=== PATIENT | female | born 1970 | race Caucasian/White ===

== ENCOUNTER 2016-09-23 08:46 | Emergency (ER) | payer MEDICAID ==
[~2016-09-23] VITALS: Ht 160 cm; Wt 83.0 kg
[2016-09-23 08:52] VITALS: BP 108/66
--- NOTE | 2016-09-23 08:59 | NUR ---
PT TAKEN TO BED 5.
--- NOTE | 2016-09-23 09:00 | NUR ---
Karen chan in [facility] - 09/23/16 at [address] Lorenzo at bedside
--- NOTE | 2016-09-23 09:00 | NUR ---
Dr. Lorenzo at bedside
--- NOTE | 2016-09-23 09:12 | NUR ---
Patient being evaluated by physician at bedside.
--- NOTE | 2016-09-23 09:13 | NUR ---
Karen chan in [facility] - 09/23/16 at 0913 by PARRISH Patient being evaluated by physician at bedside.
[2016-09-23] MEDS ORDERED: LIDOCAINE 1% 500 MG/50 ML VIAL INJ ONE (09:15)
[2016-09-23] MEDS ORDERED: IBUPROFEN 400 MG TAB PO ONE (09:15)
--- NOTE | 2016-09-23 09:16 | NUR ---
PATIENT PRESENTS TO ED WITH c/o headache . PT STATES SHE HAS CHEST PAIN IF SHE IS ANXIOUS . DENIES N/V/D; SKIN IS PINK/WARM/DRY; AAOX4 WITH EVEN AND STEADY GAIT; LUNGS CLEAR BL; HR EVEN AND REGULAR; PT DENIES ANY FEVER, CP, SOB, OR COUGH AT THIS TIME; PATIENT STATES PAIN OF 9/10 AT THIS TIME; VSS; PATIENT POSITIONED FOR COMFORT; HOB ELEVATED; BEDRAILS UP X2; BED DOWN. ER MD MADE AWARE OF PT STATUS.
--- NOTE | 2016-09-23 09:20 | NUR ---
45/F presents to ED for evaluation of headache x1 day. Patient denies syncope, denies dizzness. Denies N/V/D. Pt is AOX4, portuguese speaking with clear speaking. VSS.
[2016-09-23 10:17] VITALS: BP 101/62
--- NOTE | 2016-09-23 10:18 | NUR ---
Patient discharged with v/s stable. Written and verbal after care instructions given and explained. Patient alert, oriented and verbalized understanding of instructions. Ambulatory with steady gait. All questions addressed prior to discharge. ID band removed. Patient advised to follow up with PMD. Rx of NAPROXYN AND XANAX given. Patient educated on indication of medication including possible reaction and side effects. Opportunity to ask questions provided and answered.
--- NOTE | 2016-09-23 10:19 | NUR ---
Chart checked and completed. The patient's care was reviewed and supervised by Arvind Woodard RN.
== END 2016-09-23 10:18 | disposition home or self-care (01) ==
LOC: MED 08:46
DX: G44.209 Tension-type headache, unspecified, not intractable (principal); F41.9 Anxiety disorder, unspecified; Z90.49 Acquired absence of other specified parts of digestive tract
CPT/HCPCS: 20552; 93005; 99284; J2001

== ENCOUNTER 2016-10-10 22:01 | Emergency (ER) | payer MEDICAID ==
[~2016-10-10] VITALS: Ht 160 cm; Wt 81.6 kg
[2016-10-10 22:14] VITALS: BP 114/72
--- NOTE | 2016-10-11 00:29 | NUR ---
AMBULATED TO ER BED 3
--- NOTE | 2016-10-11 00:42 | NUR ---
PT IS A 45Y/F BIB FAMILY C/O BOTH EYE PAIN x 2 WEEKS.
--- NOTE | 2016-10-11 01:47 | NUR ---
Patient being evaluated by DR. IRVIN at bedside.
[2016-10-11] MEDS ORDERED: TETRACAINE 0.5% OPTH SOL 2 ML BTL OP ONE (01:55)
[2016-10-11] MEDS ORDERED: TETRACAINE 0.5% OPTH SOL 2 ML BTL ONE (01:59)
[2016-10-11 02:25] VITALS: BP 110/68
--- NOTE | 2016-10-11 02:25 | NUR ---
Patient discharged with v/s stable. Written and verbal after care instructions given and explained. Patient alert, oriented and verbalized understanding of instructions. Ambulatory with steady gait. All questions addressed prior to discharge. ID band removed. Patient advised to follow up with PMD. Rx of BENADRYL ALLERGY 25MG PO given. Patient educated on indication of medication including possible reaction and side effects. Opportunity to ask questions provided and answered.
== END 2016-10-11 02:25 | disposition home or self-care (01) ==
LOC: MED 22:05
DX: H10.13 Acute atopic conjunctivitis, bilateral (principal)

== ENCOUNTER 2018-01-27 20:14 | Emergency (ER) | payer MEDICAID ==
[~2018-01-27] VITALS: Ht 157.5 cm; Wt 88.5 kg
[2018-01-27 20:23] VITALS: BP 123/75
--- NOTE | 2018-01-27 20:34 | NUR ---
TO LOBBY A/W BED, EKG DONE, VSS, AMB , ERMD NOTED
--- NOTE | 2018-01-27 20:53 | NUR ---
PT TO BED 4
--- NOTE | 2018-01-27 21:05 | NUR ---
PT C/O CHESST PAIN AND SOB X3 DAYS C/P STARTED IN THE AM 3 DAYS AGO WHEN PT WAS MAKING BREAKFAST. SHE TOOK MOTRIN W/ MINIMAL RELIEF. RR EVEN AND UNALBORED, PT APPEARS TO BE IN NO ACUTE DISTRESS AT THIS TIME. PT HAS STERNAL CHEST PAIN THAT RADIATES TO LEFT SIDE OF CHEST. NO PMH, NKDA
--- NOTE | 2018-01-27 21:19 | NUR ---
Dr. Glynn evaluating patient at bedside.
[2018-01-27] MEDS ORDERED: KETOROLAC 60 MG/2 ML VIAL IM ONE (21:35)
--- NOTE | 2018-01-27 21:47 | NUR ---
X-Ray at bedside.
[2018-01-27 22:19] VITALS: BP 123/75
--- NOTE | 2018-01-27 22:19 | NUR ---
Patient discharged with v/s stable. Written and verbal after care instructions given and explained. Patient alert, oriented and verbalized understanding of instructions. Ambulatory with steady gait. All questions addressed prior to discharge. ID band removed. Patient advised to follow up with PMD. Rx of Xanax and motrin given. Patient educated on indication of medication including possible reaction and side effects. Opportunity to ask questions provided and answered.
== END 2018-01-27 22:19 | disposition home or self-care (01) ==
LOC: MED 20:14
DX: R07.89 Other chest pain (principal); F41.9 Anxiety disorder, unspecified; R03.0 Elevated blood-pressure reading, without diagnosis of hypertension
CPT/HCPCS: 71045; 93005; 96372; 99284; J1885

== ENCOUNTER 2018-04-24 11:28 | Emergency (ER) | payer MEDICAID ==
[~2018-04-24] VITALS: Ht 160 cm; Wt 85.7 kg
[2018-04-24 11:35] VITALS: BP 128/63
--- NOTE | 2018-04-24 11:35 | NUR ---
PT AMBULATED TO ER BED 06
--- NOTE | 2018-04-24 11:36 | NUR ---
47Y/F BIB FRIEND WITH C/O RT LEG PAIN FROM [place] TO RT HEEL X 2 MONTHS; HAS BEEN TAKING IBUPROFEN; DENIES INJURY; BED BOEWN ; BEDRAIL UP X 1; ER MD AWARE AND NOTIFIED OF PT STATUS; WILL CONT TO MONITOR PT. HX; DENIES RX; DENIES
--- NOTE | 2018-04-24 11:40 | NUR ---
Patient being evaluated by physician at bedside.
[2018-04-24 12:15] VITALS: BP 127/61
== END 2018-04-24 12:15 | disposition home or self-care (01) ==
LOC: MED 11:28
DX: M77.8 Other enthesopathies, not elsewhere classified (principal); M72.2 Plantar fascial fibromatosis
CPT/HCPCS: 73630; 81002; 99284

== ENCOUNTER 2018-08-15 19:10 | Emergency (ER) | payer SELFPAY ==
[~2018-08-15] VITALS: Ht 162.6 cm; Wt 84.1 kg
[2018-08-15 19:18] VITALS: BP 124/76
--- NOTE | 2018-08-15 19:23 | NUR ---
PT AMBULATED TO BED 3. URINE CUP GIVEN TO PT FOR URINE COLLECTION.
--- NOTE | 2018-08-15 21:31 | NUR ---
PATIENT LEFT WITHOUT BEING SEEN BY DR. BELLE. NO FURTHER CARE PROVIDED FOR PATIENT.
== END 2018-08-15 21:31 | disposition left against medical advice (07) ==
LOC: MED 19:10
DX: R11.0 Nausea (principal); M79.10 Myalgia, unspecified site; Z53.21 Procedure and treatment not carried out due to patient leaving prior to being seen by health care provider
CPT/HCPCS: 81002; 81025; 99281

== ENCOUNTER 2019-06-22 18:40 | Emergency (ER) | payer MEDICAID ==
[~2019-06-22] VITALS: Ht 160 cm; Wt 84.8 kg
[2019-06-22 18:45] VITALS: BP 117/73
[2019-06-22] MEDS ORDERED: KETOROLAC 60 MG/2 ML VIAL IM ONE (20:40)
[2019-06-22 21:33] VITALS: BP 109/82
== END 2019-06-22 21:33 | disposition home or self-care (01) ==
LOC: MED 18:40
DX: R07.89 Other chest pain (principal); F41.9 Anxiety disorder, unspecified
CPT/HCPCS: 93005; 96372; 99283; J1885

== ENCOUNTER 2022-08-02 15:25 | Emergency (ER) | payer MEDICAID ==
[~2022-08-02] VITALS: Ht 158 cm; Wt 90.3 kg
[2022-08-02 15:37] VITALS: BP 121/71
[2022-08-02 16:07] LABS: BASOPHILS % (AUTO) 0.4 % (0.0-2.0); EOSINOPHILS # (AUTO) 0.1 K/uL (0-0.4); EOSINOPHILS % (AUTO) 1.4 % (0.0-4.0); HEMOGLOBIN 11.9 g/dL (12.0-16.0); LYMPHOCYTES # (AUTO) 2.1 K/uL (2.5-16.5); MEAN CORPUSCULAR HEMOGLOBIN 28 pg (27-31); MEAN CORPUSCULAR HGB CONC 32 g/dL (33-37); MEAN CORPUSCULAR VOLUME 86.5 fL (80-94); MONOCYTES # (AUTO) 0.4 K/uL (0.8-1.0); MONOCYTES % (AUTO) 8.8 % (1.7-9.3); NEUTROPHILS # (AUTO) 2.4 K/uL (1.8-7.7); NEUTROPHILS % (AUTO) 47.4 % (42.2-75.2); PLATELET COUNT (AUTO) 379 K/uL (140-450); RED BLOOD CELL COUNT(AUTO) 4.28 MIL/uL (4.20-5.40)
[2022-08-02 16:09] LABS: APPEARANCE,URINE CLEAR (CLEAR); BILIRUBIN,URINE NEGATIVE (NEGATIVE); BLOOD, URINE TRACE-I (NEGATIVE); COLOR,URINE YELLOW (YELLOW); LEUKOCYTE ESTERASE ,URINE NEGATIVE (NEGATIVE); NITRITE, URINE NEGATIVE (NEGATIVE); UGLUCOSE NEGATIVE (NEGATIVE)
[2022-08-02 16:25] LABS: ALBUMIN 3.5 g/dL (3.4-5.0); CARBON DIOXIDE 31.1 mmol/L (21-32); CREATININE 0.5 mg/dL (0.6-1.3); POTASSIUM 4.1 mmol/L (3.5-5.1); TOTAL BILIRUBIN 0.6 mg/dL (0.0-1.0)
[2022-08-02 16:29] LABS: RBC,URINE 0-5 /HPF (0-5); WBC,URINE 0-5 /HPF (0-5)
[2022-08-02 16:30] LABS: TRICHOMONAS,URINE None Seen /HPF (None Seen); YEAST,URINE None Seen /HPF (None Seen)
--- NOTE | 2022-08-02 19:34 | NUR ---
PT TAKEN TO BED 4
--- NOTE | 2022-08-02 19:48 | NUR ---
51/F BIB SELF C/C 06/02 SHARP RIGHT UPPER ABD PAIN X1 DAY. +NAUSEA. PATIENT STATED THAT SHE HAS A HX OF CONSTIPATION SINCE SHE WAS A CHILD. SHE BOUGHT OTC MEDICATION YESTERDAY. STATED THAT SHE HAD A BOWEL MOVEMENT YESTERDAY BUT IT WAS HARD AND SMALL. DENEIS V/D/CHILLS/FEVER. PATIENT AAOX4 AND AMBULATORY. PLACED IN BED AND MONITOR. TOYIN SIDE RAILS UP FOR SAFETY. CALL LIGHT IN REACH. ALL NEEDS MET. LMP 07/20 PMHX ANXIETY, GALLSTONE SURGERY, CONSTIPATION NKA
--- NOTE | 2022-08-02 20:44 | NUR ---
PT TAKEN TO CT
--- NOTE | 2022-08-02 20:59 | NUR ---
PT RETURN FROM CT
--- NOTE | 2022-08-02 22:26 | NUR ---
PATIENT RESTING IN BED WITH EYES CLOSED. CURRENTLY ON BEDSIDE MONITOR. VSS. DOESNT APPEAR TO BE IN DISTRESS. BED LOW AND LOCKED. TOYIN SIDE RAILS FOR SAFETY. CALL LIGHT IN REACH. ALL NEEDS MET.
[2022-08-03] MEDS ORDERED: ONDA-188 SL (00:53)
[2022-08-03 01:18] VITALS: BP 127/77
== END 2022-08-03 01:18 | disposition home or self-care (01) ==
LOC: MED 15:25
DX: R10.11 Right upper quadrant pain (principal)
CPT/HCPCS: 36415; 74160; 76705; 80053; 81001; 83690; 85025; 99285; Q0092; Q9967